=== PATIENT | male | born 1975 | race Caucasian/White ===

== ENCOUNTER 2022-11-28 16:30 | Emergency (ER) | payer BC, SELFPAY ==
[2022-11-28 16:33] VITALS: BP 145/103; PULSE 96; RESP 16; TEMP 36; O2SAT 98; BMI 33.5
--- NOTE | 2022-11-28 16:45 | CRLHL7_ITS ---
For Patients: As a result of the Century Cures Act, medical imaging exams and procedure reports are released immediately into your electronic medical record. You may view this report before your referring provider. If you have questions, please contact your health care provider. Indication: RIGHT FRONTAL HEADACHE, R/O SINUSITIS Technique: CT of the head without contrast. Coronal and sagittal reformats. Bone and soft tissue windows. Comparison: No prior studies available for comparison at this institution. Findings: No acute intracranial hemorrhage or extraaxial collection. No evidence of acute cortical infarction. No mass effect or midline shift. Normal cerebral volume. The ventricles are normal in size, shape and contour. There is normal mario and white matter differentiation. The orbital contents are normal. No calvarial fractures. No lytic or sclerotic osseous lesions within the calvarium or skull base. Scalp and other imaged soft tissue structures are normal. The mastoid air cells are clear. Complete opacification of the frontal sinuses, left ethmoid air cells, moderate opacification of right ethmoid air cells. Moderate opacification of the right sphenoid sinus. Moderate right and mild left maxillary sinus mucosal thickening with air-fluid levels, right greater than left. Bilateral nasal polyps. Leftward deviation of the nasal septum. The mastoid air cells and middle ear cavities are clear. Impression: 1. No acute intracranial abnormality. 2. Complete opacification of the frontal sinuses, left ethmoid air cells, moderate opacification of right ethmoid air cells. Moderate opacification of the right sphenoid sinus. Moderate right and mild left maxillary sinus mucosal thickening with air-fluid levels, right greater than left. Bilateral nasal polyps. Findings suggestive of acute on chronic sinus disease. Please note that all CT scans at this facility use dose modulation, iterative reconstruction, and/or weight-based dosing when appropriate to reduce radiation dose to as low as reasonably achievable. Dictated by Kuldip Ortez MD @ 11/28/2022 5:10:24 PM (Electronically Signed)
--- NOTE | 2022-11-28 16:46 | ED_ITS ---
HPI - General Adult General Time Seen by Provider: 16:46 Date Seen: 11/28/22 Chief complaint: Headache/Migraine Stated complaint: pain above LT eye Time Seen by Provider: 11/28/22 16:31 Source: patient Mode of arrival: ambulatory Limitations: no limitations History of Present Illness HPI narrative: Patient is a 47-year-old male who has had history of sinusitis, nasal polyps. The patient reports he has had some left eye frontal pain over the last couple of days on and off it was not so bad this morning but he went to work, it got worse. He states ?I feel like his a tension headache?. He has not had migraines not had any nuchal rigidity no thunderclap nature of the headache. No fevers chills no COVID symptoms. He has been told he has got a borderline blood sugar with minimally elevated hemoglobin A1c, as recent nonfasting blood sugar was 119 Related Data Previous Rx's Medication Instructions Recorded amoxicillin 875 mg-potassium 1 tab PO BID #14 tabs 11/28/22 clavulanate 125 mg tablet hydrocodone 5 mg-acetaminophen 325 1 tab PO Q6H PRN pain #14 tabs 11/28/22 mg tablet prednisone 20 mg tablet 20 mg PO BID 5 days #10 tabs 11/28/22 Allergies Allergy/AdvReac Type Severity Reaction Status Date / Time No Known Drug Allergies Allergy Verified 11/28/22 16:36 Review of Systems Status of ROS: Reports: 6 or more systems reviewed and unremarkable except as noted in History and below PFSH PFSH Social History Smoking Status: Never smoker Do you use any of these nicotine containing products: None Second hand tobacco smoke exposure: No How often do you have a drink containing alcohol: never How often do you have six or more drinks on one occasion: Never AUDIT-C Alcohol total score: 0 Non-prescribed substance use: denies use service: No Exam Narrative: Exam Narrative: Objective: Vital signs are unremarkable other than slightly elevated diastolic pressure HEENT shows no facial asymmetry pupils react to light extra muscles intact no facial rashes noted Mouth clear Neck is supple Neurologic upper extremities unremarkable Const: Vital Signs, click to edit/add: Vital Signs - 24 hr 11/28/22 16:33 Temperature 96.8 F L Pulse Rate [Pulse Oximeter] 96 Respiratory Rate 16 Blood Pressure [Ri ght Upper Arm] 145/103 H Pulse Oximetry 98 Oxygen Delivery Me thod Room Air Course Vital Signs Vital signs: Initial Vital Signs Temperature 96.8 F L 11/28/22 16:33 Temperature Source Temporal Artery Scan 11/28/22 16:33 Pulse Rate 96 11/28/22 16:33 Pulse Rhythm Regular 11/28/22 16:33 Pulse Strength 3+ Normal 11/28/22 16:33 Respiratory Rate 16 11/28/22 16:33 Blood Pressure 145/103 H 11/28/22 16:33 Blood Pressure Mean 117 11/28/22 16:33 Blood Pressure Position Sitting 11/28/22 16:33 Pulse Oximetry 98 11/28/22 16:33 Oxygen Delivery Method Room Air 11/28/22 16:33 Vital Signs Temperature 96.8 F L 11/28/22 16:33 Pulse Rate 96 11/28/22 16:33 Respiratory Rate 16 11/28/22 16:33 Blood Pressure 145/103 H 11/28/22 16:33 Pulse Oximetry 98 11/28/22 16:33 Oxygen Delivery Method Room Air 11/28/22 16:33 Temperature 96.8 F L 11/28/22 16:33 Pulse Rate 96 11/28/22 16:33 Respiratory Rate 16 11/28/22 16:33 Blood Pressure 145/103 H 11/28/22 16:33 Pulse Oximetry 98 11/28/22 16:33 Oxygen Delivery Method Room Air 11/28/22 16:33 Medical Decision Making MDM Narrative Medical decision making narrative: Patient is a 47 year white male with history of sinusitis and nasal polyps with left ethmoid sinus area pain medial aspect of his forehead and behind his nose area. He has no history of migraines, no history nuchal rigidity the patient h as no thunderclap nature to his headache. However he has not really had this type of headache in the past. I think it be reasonable to start an IV given 1 L normal saline Toradol/Benadryl/Reglan. Would also get a head CT scan without contrast to make sure his sinuses look reassuring as well as no brain issues. He was comfortable this plan and agreed to proceed as above. Discharge Plan Discharge Clinical Impression: Headache, Sinusitis Patient Disposition: Home w/ Parent or Adult Condition: Improved Additional Instructions: Rest, fluids, light activity for a couple of days, follow-up with primary care in 2-3 days. Tylenol and or Advil or Aleve as needed, Augmentin 875 b.i.d. times 14 days, prednisone 20 mg b.i.d. x5 days, [place] 01/3251 every 8 hours as needed for pain. Off work for 2 days, recheck with primary care in 2 days Activity Level: Light activity Discharge Diet: Regular Prescriptions: New amoxicillin-pot clavulanate 875-125 mg tablet 1 tab PO BID Qty: 14 0RF prednisone 20 mg tablet 20 mg PO BID 5 Days Qty: 10 0RF hydrocodone-acetaminophen 5-325 mg tablet 1 tab PO Q6H PRN (Reason: pain) Qty: 14 0RF Follow Up/Referrals: Robert Hernandez MD [Primary Care Provider] - Stand Alone Forms: [employer] Info Instructions
[2022-11-28] MEDS: diphenhydrAMINE 50 MG/ML inj 25 MG IVP (17:06)
[2022-11-28] MEDS: 0.9 % SODIUM CHLORIDE 1000 ml 1,000 ML 6000 ML IV (17:07)
[2022-11-28] MEDS: KETOROLAC 30 MG/ML inj IVP (17:07)
[2022-11-28] MEDS: METOCLOPRAMIDE HCL 10 MG in 0.9 % SODIUM CHLORIDE 100 ml 100 ML 306 MG IV (17:25)
[2022-11-28] MEDS: AMPICILLIN/SULBACTAM 3 GM in 0.9 % SODIUM CHLORIDE Mini-bag 100 ML IVPB (17:56)
[2022-11-28] MEDS: METHYLPREDNISOLONE SOD SUCC 62.5 MG/ML (125) 125 MG IVP (17:56)
== END 2022-11-28 18:26 | disposition home or self-care (01) ==
PROVIDERS: Emergency Provider Family Medicine; PCP Surgery
DX: R51.9 Headache, unspecified (principal); J32.9 Chronic sinusitis, unspecified
CPT/HCPCS: 70450; 96374; 96375; 99284; J0295; J1200; J1885; J2765; J2930; J7030

== ENCOUNTER 2023-07-16 04:58 | Outpatient (CLI) | payer BC, SELFPAY | END 2023-07-16 04:59 | disposition home or self-care (01) | LOC: AMB 07-18 06:26 | PROVIDERS: PCP Surgery; Visit Provider Family Medicine | DX: R41.82 Altered mental status, unspecified (principal) | CPT/HCPCS: A0425; A0427 ==

== ENCOUNTER 2023-07-16 05:16 | Observation (INO) | payer BC, SELFPAY ==
[2023-07-16] VITALS (13 sets, daily range): BP systolic 111–155; BP diastolic 73–88; PULSE 80–122; RESP 16–20; TEMP 36.7–37.4; O2SAT 95–98; BMI 32.5; BMI 29.8
--- NOTE | 2023-07-16 05:27 | CRLHL7_ITS ---
For Patients: As a result of the Century Cures Act, medical imaging exams and procedure reports are released immediately into your electronic medical record. You may view this report before your referring provider. If you have questions, please contact your health care provider. INDICATION: Acute stroke, slurred speech, left facial droop. TECHNIQUE: CTA head with contrast bolus tracking, 3D angiographic rendering using maximum intensity projection (MIP) and images permanently archived. FINDINGS: There is normal opacification of the intracranial vasculature. There is no large vessel occlusion. No aneurysm is identified. IMPRESSION: Unremarkable head CTA. No large vessel occlusion. Please note that all CT scans at this facility use dose modulation, iterative reconstruction, and/or weight-based dosing when appropriate to reduce radiation dose to as low as reasonably achievable. Dictated by Dimas Lilly MD @ 07/16/2023 8:41:50 AM (Electronically Signed)
--- NOTE | 2023-07-16 05:27 | CRLHL7_ITS ---
For Patients: As a result of the Century Cures Act, medical imaging exams and procedure reports are released immediately into your electronic medical record. You may view this report before your referring provider. If you have questions, please contact your health care provider. INDICATION: Slurred speech and left facial droop. TECHNIQUE: CT head without contrast. COMPARISON: None. FINDINGS: CSF spaces: Within normal limits for age. Brain parenchyma and extra-axial spaces: The mario-white differentiation is normal. No sign of mass, hemorrhage, or midline shift. No extra-axial fluid collection. Skull base and calvarium: The visualized paranasal sinuses and mastoid air cells demonstrate no acute or significant findings. The visualized orbits are grossly unremarkable. No skull fractures. IMPRESSION: No acute infarct, intracranial hemorrhage or other significant incidental findings. Please note that all CT scans at this facility use dose modulation, iterative reconstruction, and/or weight-based dosing when appropriate to reduce radiation dose to as low as reasonably achievable. Dictated by Vic Barbosa MD @ 07/16/2023 5:54:54 AM (Electronically Signed)
--- NOTE | 2023-07-16 05:27 | CRLHL7_ITS ---
For Patients: As a result of the Century Cures Act, medical imaging exams and procedure reports are released immediately into your electronic medical record. You may view this report before your referring provider. If you have questions, please contact your health care provider. INDICATION: Acute stroke, slurred speech, left facial droop. TECHNIQUE: CTA neck with contrast bolus tracking, 3D angiographic rendering using maximum intensity projection (MIP) and images permanently archived. FINDINGS: There is marked tortuosity and redundancy of the internal carotid arteries. There is no significant carotid artery stenosis or dissection. There is no significant vertebral artery stenosis or dissection. The soft tissues of the neck are within normal limits. The cervical spine is in normal alignment. IMPRESSION: No significant carotid or vertebral artery stenosis or dissection. Please note that all CT scans at this facility use dose modulation, iterative reconstruction, and/or weight-based dosing when appropriate to reduce radiation dose to as low as reasonably achievable. Dictated by Dimas Lilly MD @ 07/16/2023 8:45:54 AM (Electronically Signed)
[2023-07-16] MEDS: ASPIRIN 81 MG TAB.CHEW 324 MG PO (05:36)
--- NOTE | 2023-07-16 05:48 | ED.GENADULT ---
HPI - General Adult General Chief complaint: Neuro Symptoms/Altered Deficit Stated complaint: possible stroke Time Seen by Provider: 07/16/23 05:27 Source: patient Mode of arrival: EMS History of Present Illness HPI narrative: I see patient in the hallway as he comes in by EMS unplanned route directly to CT scan for neurological changes. Patient last known well at 9:00 p.m., confirmed by significant other. He gets up for work around 410. He does not typically wake his spouse until he leaves for work at around 445. At around 4:30 a.m., she reports that he woke her up stating that his eye hurt and she could tell that he had a left-sided facial droop and seemed unsteady, therefore she called 911. He has no prior history of neurological changes. No prior history of stroke, AFib or arrhythmia. He is not anticoagulated. No recent trauma or injury. Patient currently reporting headache in the left occipital area. He does report that he had a headache that was dull and mild yesterday in the left eye/left pentecostalism area. No recent fevers. No neck pain. No recent chiropractic manipulation or neck trauma. EMS noting some weakness in the left arm, facial droop and some word slurring on route. No interventions were given prior to hospital arrival. Patient otherwise notes no pain besides the mild headache, no other pertinent history. No prior surgeries. Past medical history notable for type 2 diabetes, hyperlipidemia. Home meds atorvastatin, fenofibrate, metformin. Nonsmoker. ROS notable for the neurological changes as above, otherwise denies times 12 systems. Related Data Home Medications Medication Instructions Recorded Confirmed atorvastatin 20 mg tablet 20 mg PO DAILY 07/16/23 07/16/23 fenofibrate 160 mg tablet 160 mg PO DAILY 07/16/23 07/16/23 metformin 500 mg tablet,extended 500 mg PO DAILY 07/16/23 07/16/23 release 24 hr Previous Rx's Medication Instructions Recorded amoxicillin 875 mg-potassium 1 tab PO BID #14 tabs 11/28/22 clavulanate 125 mg tablet hydrocodone 5 mg-acetaminophen 325 1 tab PO Q6H PRN pain #14 tabs 11/28/22 mg tablet prednisone 20 mg tablet 20 mg PO BID 5 days #10 tabs 11/28/22 Allergies Allergy/AdvReac Type Severity Reaction Status Date / Time No Known Drug Allergies Allergy Verified 07/16/23 06:01 [facility] Social History Smoking Status: Never smoker Do you use any of these nicotine containing products: None Second hand tobacco smoke exposure: No How often do you have a drink containing alcohol: never How often do you have six or more drinks on one occasion: Never AUDIT-C Alcohol total score: 0 Non-prescribed substance use: denies use service: No Exam Const: Vital Signs, click to edit/add: Vital Signs - 24 hr 07/16/23 05:45 07/16/23 05:53 07/16/23 06:00 Temperature 98.1 F Pulse Rate 107 H 108 H Pulse Rate [Pulse Oximeter] 122 H Respiratory Rate 18 Blood Pressure Blood Pressure [Le ft Upper Arm] 155/86 H Pulse Oximetry 97 97 97 Oxygen Delivery Me thod Room Air 07/16/23 06:02 07/16/23 06:15 07/16/23 06:17 Temperature Pulse Rate 105 H 115 H 101 H Pulse Rate [Pulse Oximeter] Respiratory Rate 16 Blood Pressure 136/83 142/88 H Blood Pressure [Le ft Upper Arm] Pulse Oximetry 96 96 96 Oxygen Delivery Me thod 07/16/23 06:18 07/16/23 06:30 07/16/23 06:32 Temperature Pulse Rate 100 90 93 Pulse Rate [Pulse Oximeter] Respiratory Rate Blood Pressure 128/84 Blood Pressure [Le ft Upper Arm] Pulse Oximetry 96 96 95 Oxygen Delivery Me thod 07/16/23 06:45 Temperature Pulse Rate 95 Pulse Rate [Pulse Oximeter] Respiratory Rate Blood Pressure Blood Pressure [Le ft Upper Arm] Pulse Oximetry 96 Oxygen Delivery Me thod Documenting provider has reviewed patient's vital signs: yes Common normals: oriented x3 and alert General appearance: well kempt Other: Awake, alert, not intoxicated. Obvious facial droop, slurring of words, a right-sided gaze preference and guarding of left arm. HENMT: Common normals: normocephalic, head/scalp atraumatic and TM's normal bilaterally Head and scalp: normocephalic and atraumatic Tympanic membrane: TM's normal bilaterally Other: Left facial droop, symmetric palate. Tongue midline. Eye: Common normals: PERRL Pupil: PERRL Other: Seems to have some visual field deficits on the left side my initial exam. Certainly has a right-sided gaze preference. No nystagmus. Pupils equal round and reactive. Neck & C-Spine: Common normals: full ROM and no lymphadenopathy Resp: Common normals: normal respiratory effort, no use of accessory muscles and clear to auscultation bilaterally Effort & inspection: able to speak in complete sentences Auscultation: clear to auscultation bilaterally Cardio: Common normals: regular rate, regular rhythm, S1 normal heart sound, S2 normal heart sound and no murmurs Rate: regular rate Rhythm: regular rhythm Heart sounds: S1 normal and S2 normal GI: Common normals: Normal to inspection, nondistended, normoactive bowel sounds present, soft to palpation, non-tender, no hepatosplenomegaly and no masses Palpation: soft and no hepatosplenomegaly Extremity: Common normals: normal capillary refill and no pedal edema Neuro: [place] Coma Scale: document GCS findings [place] coma scale eye opening: Spontaneous (4) [place] coma scale verbal response: Orientated (5) [place] coma scale motor response: Obey commands (6) [place] coma scale total score: 15 Common normals: oriented x3 Sensorium/orientation: alert Other: Speech slightly slurred, slow speech, seems to have a little difficulty with word finding and speech production. Left-sided visual field deficits, right gaze preference, weakness 3/5 left upper arm, 2/5 left hand. 2/5 weakness left foot, 4/5 weakness left leg proximally. Right side seems normal, 5/5 strength. Psych: Common normals: mental status grossly normal Appearance: well kempt Attitude: engaged Mood and affect: euthymic mood Skin: Common normals: no rashes or lesions noted General skin exam: no rashes or lesions noted Course Course ED Course: Patient med and hallway, signs of obvious stroke. Taken immediately to CT. Noncontrast CT perform. I viewed the images immediately and not detecting any sign of acute bleed recommended we proceed immediately with CT angio. While this is being performed, I walked back to the emergency department and was alerted that neurology was on the phone for me, contacted by our nursing protocol team. I explained clinical findings, last known normal of 2100 and findings. They are recommending no tPA. Re consult Neurology after MRI is performed later today. I will give aspirin, continue remainder of exam, typical cardiac and basic lab workup. Await CT findings. Initial NIH 12 Reevaluation(s) Time of Reevaluation #1: 06:23 Reevaluation #1: Patient family informed of CT findings. NIH is around 12. Some fluctuating strength in the hand and leg on the left side but certainly still deficits. Visual gaze, word-finding, slurring of speech and facial droop seem more consistent. CT angio and initial head CT are normal. Neurology team recommending MRI. Will admit patient for echo, cardiac monitoring, MRI and further workup. Patient will be NPO but will start some maintenance fluid. Labs are reassuring. Admission accepted by night hospitalist. Vital Signs Vital signs: Initial Vital Signs Temperature 98.1 F 07/16/23 05:45 Temperature Source Temporal Artery Scan 07/16/23 05:45 Pulse Rate 122 H 07/16/23 05:45 Respiratory Rate 18 07/16/23 05:45 Blood Pressure 155/86 H 07/16/23 05:45 Blood Pressure Mean 109 H 07/16/23 05:45 Pulse Oximetry 97 07/16/23 05:45 Oxygen Delivery Method Room Air 07/16/23 05:45 Vital Signs Temperature 98.1 F 07/16/23 05:45 Pulse Rate 122 H 07/16/23 05:45 Respiratory Rate 18 07/16/23 05:45 Blood Pressure 155/86 H 07/16/23 05:45 Pulse Oximetry 97 07/16/23 05:45 Oxygen Delivery Method Room Air 07/16/23 05:45 Temperature 98.1 F 07/16/23 05:45 Pulse Rate 95 07/16/23 06:45 Respiratory Rate 16 07/16/23 06:17 Blood Pressure 128/84 07/16/23 06:32 Pulse Oximetry 96 07/16/23 06:45 Oxygen Delivery Method Room Air 07/16/23 05:45 Medications Administered Medications: Discontinued Medications Generic Name Dose Route Start Last Admin Trade Name Freq PRN Reason Stop Dose Admin Aspirin 324 mg 07/16/23 05:35 07/16/23 05:36 Aspirin 81 Mg Tab.Chew PO 07/16/23 05:36 324 mg ONCE ONE Administration Medical Decision Making Lab Data Labs: Lab Results 07/16/23 Range/Units 05:30 WBC 5.97 (4.50-11.00) K/uL RBC 4.30 (4.30-5.90) m/uL Hgb 13.1 L (13.5-17.5) gm/dL Hct 38.9 (37.0-53.0) % MCV 91 (80-100) fL MCH 31 (26-34) pg MCHC 34 (32-36) gm/dL RDW Coeff of David 12.3 (11.5-15.5) % Plt Count 228 (140-440) K/uL Neut % (Auto) 59.4 (42.0-72.0) % Lymph % (Auto) 22.3 (20-44) % [place] % (Auto) 9.4 (0.0-11.0) % Eos % (Auto) 7.9 H (0.0-7.0) % Baso % (Auto) 0.8 (0.0-3.0) % Neut # (Auto) 3.55 (1.7-7.0) K/uL Lymph # (Auto) 1.33 (0.90-2.90) K/uL [place] # (Auto) 0.60 (0.00-0.90) K/UL Eos # (Auto) 0.50 (0.00-0.50) K/uL Baso # (Auto) 0.05 (0.00-0.30) K/uL Abs Immat Gran (auto) 0.01 (0.00-0.30) K/uL Imm/Tot Granulo (auto) 0.2 % INR 1.03 (0.91-1.10) Sodium 139 (135-149) mmol/L Potassium 3.6 (3.6-5.1) mmol/L Chloride 115 H (96-114) mmol/L Carbon Dioxide 17 L (20-32) mmol/L Anion Gap 7 (7-15) mEq/L BUN 17 (5-24) mg/dL Creatinine 0.7 (0.5-1.5) mg/dL Estimated Creat Clear 140.11 Estimated GFR 113 ml/min Glucose 157 H (60-115) mg/dL Calcium 7.4 L (8.4-10.6) mg/dL Imaging Data CT scan - head: Attestation: I have reviewed the pertinent imaging results. My impression: Noncontrast CT with no acute bleed, mass or other pertinent findings Radiologist's impression: IMPRESSION: No acute infarct, intracranial hemorrhage or other significant incidental findings. CT angio head and neck: Attestation: I have reviewed the pertinent imaging results. My impression: I am not qualified to read these. Radiologist's impression: PRELIMINARY FINDINGS/IMPRESSION: CTA head: No large vessel occlusion, significant stenosis or aneurysm. CTA neck: No significant stenosis or occlusion of the cervical carotid or vertebral arteries. Dominant left vertebral artery. THIS IS A PRELIMINARY REPORT. THE FINAL REPORT IS PENDING AND WILL BE ISSUED BY NEURORADIOLOGY. Dictated by Vic Barbosa MD @ 07/16/2023 6:03:42 AM ECG Data Attestation: I personally reviewed and interpreted this ECG as follows: Prior ECG tracings: not available for review Interpretation: Initial EKG with sinus tachycardia, rate of 122. Normal axis, normal intervals. No ischemia normal ST segments. Discharge Plan Discharge Clinical Impression: Cerebrovascular accident Patient Disposition: Admitted As Observation
[2023-07-16 05:50] LABS: Basophils Absolute Auto 0.05 K/uL (0.00-0.30); Basophils Percent Auto 0.8 % (0.0-3.0); Eosinophils Percent Auto 7.9 % (0.0-7.0); Hematocrit 38.9 % (37.0-53.0); Hemoglobin* 13.1 gm/dL (13.5-17.5); Immature Granulocytes Abs Auto 0.01 K/uL (0.00-0.30); Immature Granulocytes Pct Auto 0.2 %; Lymphocytes Absolute Auto 1.33 K/uL (0.90-2.90); Lymphocytes Percent Auto 22.3 % (20-44); Mean Corpuscular HGB Conc 34 gm/dL (32-36); Mean Corpuscular Hemoglobin 31 pg (26-34); Mean Corpuscular Volume 91 fL (80-100); Monocytes Percent Auto 9.4 % (0.0-11.0); Neutrophils Absolute Auto 3.55 K/uL (1.7-7.0); Neutrophils Percent Auto 59.4 % (42.0-72.0); Platelet Count* 228 K/uL (140-440); RDW Coefficient of Variation % 12.3 % (11.5-15.5); White Blood Count* 5.97 K/uL (4.50-11.00)
[2023-07-16 05:54] LABS: Slide Review Reflex No
[2023-07-16 06:06] LABS: Chloride* 115 mmol/L (96-114); Potassium* 3.6 mmol/L (3.6-5.1); Sodium* 139 mmol/L (135-149)
[2023-07-16 06:08] LABS: INR 1.03 (0.91-1.10); Prothrombin Time 14.1 Seconds
[2023-07-16 06:09] LABS: Anion Gap 7 mEq/L (7-15); Blood Urea Nitrogen* 17 mg/dL (5-24); Carbon Dioxide* 17 mmol/L (20-32); Creatinine* 0.7 mg/dL (0.5-1.5); Est. Creatinine Clearance* 140.11; Estimated Glomerular Filt Rate 113 ml/min; Glucose* 157 mg/dL (60-115)
[2023-07-16 06:10] LABS: Calcium* 7.4 mg/dL (8.4-10.6)
--- NOTE | 2023-07-16 07:06 | CRLHL7_ITS ---
For Patients: As a result of the Cures Act, medical imaging exams and procedure reports are released immediately into your electronic medical record. You may view this report before your referring provider. If you have questions, please contact your health care provider. INDICATION: Left facial droop. TECHNIQUE: Multisequence multiplanar MRI of the head without contrast. COMPARISON: Correlated with CT head dated 07/16/2023. FINDINGS: Diffusion-weighted imaging demonstrates no evidence of acute or subacute ischemia. Few scattered foci of nonspecific periventricular and subcortical T2/FLAIR hyperintensity. The ventricles are normal in size. Flow voids of the larger intracranial arteries are patent. Bone marrow signal intensity of the calvarium is within normal limits. Orbits are unremarkable in appearance. Scattered paranasal sinus opacification and diffuse paranasal sinus mucosal thickening with leftward deviation of nasal septum and probable septal spur. IMPRESSION: 1. No evidence of acute ischemia. 2. Few scattered foci periventricular and subcortical T2/FLAIR hyperintensity, nonspecific, but commonly seen in the setting of chronic migraine headache. 3. Scattered paranasal sinus opacification perhaps reflecting sinusitis, with leftward deviation of the nasal septum and probable septal spur. Dictated by Aleks Al MD @ 07/16/2023 9:11:32 AM (Electronically Signed)
[2023-07-16 10:47] LABS: Erythrocyte SedimentationRate* < 2 mm/hr (2-15)
[2023-07-16 11:18] LABS: C Reactive Protein* < 0.5 mg/dL (0.5-1.0)
--- NOTE | 2023-07-16 12:13 | PC.NURSE ---
Discharge: Patient pleasant and cooperative. Patient vitally stable, lungs clear, BS WNL, IV removed, catheter intact. Patient independent in room. Patient with slight left side facial droop and left side weakness. Patient denies pain. Patient urinating and tolerating regular diet. Patient left the floor by foot to home at 1211.
--- NOTE | 2023-07-16 13:45 | PM.DS1 ---
DS: Providers Provider Date Seen: 07/16/23 Date of admission: 07/16/23 07:14 Primary care physician: Robert Hernandez MD Admitting Clinician: Gera Quiñones MD Attending Physician on discharge: Luis Carlos Emmanuel MD Date of Discharge: 07/16/23 DS: Diagnosis Discharge Diagnosis (1) TIA (transient ischemic attack): Status: Acute Problem details: Patient admitted with left-sided facial weakness as well as possible left arm weakness, and difficulty speaking. This resolved fairly quickly. CT, CTA and MRI showed no stroke and no large vessel occlusion. (2) Diabetes mellitus: Status: Acute Problem details: This is been fairly well controlled. Blood sugar on presentation was over 200 showing hypoglycemia not the cause of his neurologic symptoms (3) Dyslipidemia: Status: Acute (4) Temporal headache: Status: Acute Problem details: On admission patient was reporting pain in his left quaker. Palpation of his temporal artery was not tender but anterior to that he did have some tenderness with palpation. His sed rate was undetectable, less than 2, and his CRP was less than 0.5. This is thought not to be temporal arteritis though consulting neurologist said that it is possible to have temporal arteritis with normal inflammatory markers. If he continues to have concerning symptoms consider further evaluation with temporal artery biopsy. DS: Summary Hospital Course Hospital Course: Patient admitted with left-sided facial weakness and possibly left arm weakness and question of speech difficulties. These were all observed at home. In the emergency department exam showed obvious left facial droop, slurring of words, right-sided gaze preference and guarding of left arm. Significant left arm weakness and mild left leg weakness noted at that time as well. CT of the head showed no acute changes and no bleed. CTA showed no large vessel occlusion. MRI of the brain showed mild chronic changes that could be associated with migraine headaches but no acute stroke. His symptoms entirely resolved except minimal left temporal headache and his neurologic exam was normal when I saw him mid morning.. He was seen by Stroke Neurology by tele medicine as well. Status at Discharge Functional status at discharge: independent ambulation Overall status at discharge: patient is back to baseline Time Spent with Patient Time attestation: Total time spent providing and/or coordinating discharge services: 45 minutes Time spent: Greater than 30 minutes Exam Narrative: Exam Narrative: He is alert and in no distress. He is oriented to his circumstances. His speech is fluent. Head is without trauma. Palpation shows minimal tenderness over his left quaker. This is at least a couple cm anterior to the temporal artery. He does have a pulsating and nontender temporal artery. He has no tenderness over the TMJ. Oropharynx is normal. He has no facial asymmetry. Extraocular movements are full. Visual isbell are intact . Pupils are equal round and reactive to light. [id number] is normal bilaterally. Strength testing is full and symmetric bilaterally except for mild spikemaking supervisor strength weakness on the left compared to the right. Finger extension however is equal at 5 over 5 bilaterally. Lower extremity strength is also equal at 5 over 5 bilaterally. Respirations are clear to auscultation. Cardiovascular: S1, S2, regular rate and rhythm. Abdomen is soft without tenderness. Const: Vital Signs, click to edit/add: Vital Signs - 24 hr 07/16/23 05:45 07/16/23 05:53 07/16/23 06:00 Temperature 98.1 F Pulse Rate 107 H 108 H Pulse Rate [Pulse Oximeter] 122 H Respiratory Rate 18 Blood Pressure Blood Pressure [Le ft Arm] Blood Pressure [Le ft Upper Arm] 155/86 H Blood Pressure [Ri ght Arm] Pulse Oximetry 97 97 97 Oxygen Delivery Me thod Room Air 07/16/23 06:02 07/16/23 06:09 07/16/23 06:15 Temperature Pulse Rate 105 H 115 H Pulse Rate [Pulse Oximeter] Respiratory Rate Blood Pressure 136/83 Blood Pressure [Le ft Arm] Blood Pressure [Le ft Upper Arm] Blood Pressure [Ri ght Arm] Pulse Oximetry 96 98 96 Oxygen Delivery Me thod 07/16/23 06:17 07/16/23 06:18 07/16/23 06:30 Temperature Pulse Rate 101 H 100 90 Pulse Rate [Pulse Oximeter] Respiratory Rate 16 Blood Pressure 142/88 H Blood Pressure [Le ft Arm] Blood Pressure [Le ft Upper Arm] Blood Pressure [Ri ght Arm] Pulse Oximetry 96 96 96 Oxygen Delivery Me thod 07/16/23 06:32 07/16/23 06:45 07/16/23 07:16 Temperature 98.4 F Pulse Rate 93 95 Pulse Rate [Pulse Oximeter] 102 H Respiratory Rate 20 Blood Pressure 128/84 Blood Pressure [Le ft Arm] Blood Pressure [Le ft Upper Arm] Blood Pressure [Ri ght Arm] 119/82 Pulse Oximetry 95 96 97 Oxygen Delivery Me thod Room Air 07/16/23 11:41 Temperature 99.3 F Pulse Rate Pulse Rate [Pulse Oximeter] 80 Respiratory Rate 18 Blood Pressure Blood Pressure [Le ft Arm] 111/73 Blood Pressure [Le ft Upper Arm] Blood Pressure [Ri ght Arm] Pulse Oximetry 95 Oxygen Delivery Me thod Room Air Documenting provider has reviewed patient's vital signs: yes DS: Data Data Completed and Pending Labs on day of discharge: Labs from last 24 hours 07/16/23 07/16/23 07/16/23 10:54 05:40 05:30 WBC 5.97 RBC 4.30 Hgb 13.1 L Hct 38.9 MCV 91 MCH 31 MCHC 34 RDW Coeff of David 12.3 Plt Count 228 Neut % (Auto) 59.4 Lymph % (Auto) 22.3 Emmet % (Auto) 9.4 Eos % (Auto) 7.9 H Baso % (Auto) 0.8 Neut # (Auto) 3.55 Lymph # (Auto) 1.33 Emmet # (Auto) 0.60 Eos # (Auto) 0.50 Baso # (Auto) 0.05 Abs Immat Gran (auto) 0.01 Imm/Tot Granulo (auto) 0.2 ESR < 2 L INR 1.03 Sodium 139 Potassium 3.6 Chloride 115 H Carbon Dioxide 17 L Anion Gap 7 BUN 17 Creatinine 0.7 Estimated Creat Clear 140.11 Estimated GFR 113 Glucose 157 H Calcium 7.4 L C-Reactive Protein < 0.5 L Lab Acknowledgement Test Added Imaging MR Brain: My impression: INDICATION: Left facial droop. TECHNIQUE: Multisequence multiplanar MRI of the head without contrast. COMPARISON: Correlated with CT head dated 07/16/2023. FINDINGS: Diffusion-weighted imaging demonstrates no evidence of acute or subacute ischemia. Few scattered foci of nonspecific periventricular and subcortical T2/FLAIR hyperintensity. The ventricles are normal in size. Flow voids of the larger intracranial arteries are patent. Bone marrow signal intensity of the calvarium is within normal limits. Orbits are unremarkable in appearance. Scattered paranasal sinus opacification and diffuse paranasal sinus mucosal thickening with leftward deviation of nasal septum and probable septal spur. IMPRESSION: 1. No evidence of acute ischemia. 2. Few scattered foci periventricular and subcortical T2/FLAIR hyperintensity, nonspecific, but commonly seen in the setting of chronic migraine headache. 3. Scattered paranasal sinus opacification perhaps reflecting sinusitis, with leftward deviation of the nasal septum and probable septal spur. CT scan - head: Radiologist's impression: NDICATION: Slurred speech and left facial droop. TECHNIQUE: CT head without contrast. COMPARISON: None. FINDINGS: CSF spaces: Within normal limits for age. Brain parenchyma and extra-axial spaces: The mario-white differentiation is normal. No sign of mass, hemorrhage, or midline shift. No extra-axial fluid collection. Skull base and calvarium: The visualized paranasal sinuses and mastoid air cells demonstrate no acute or significant findings. The visualized orbits are grossly unremarkable. No skull fractures. IMPRESSION: No acute infarct, intracranial hemorrhage or other significant incidental findings. CT- Other: Radiologist's impression: CTA head: INDICATION: Acute stroke, slurred speech, left facial droop. TECHNIQUE: CTA head with contrast bolus tracking, 3D angiographic rendering using maximum intensity projection (MIP) and images permanently archived. FINDINGS: There is normal opacification of the intracranial vasculature. There is no large vessel occlusion. No aneurysm is identified. IMPRESSION: Unremarkable head CTA. No large vessel occlusion. CTA neck INDICATION: Acute stroke, slurred speech, left facial droop. TECHNIQUE: CTA neck with contrast bolus tracking, 3D angiographic rendering using maximum intensity projection (MIP) and images permanently archived. FINDINGS: There is marked tortuosity and redundancy of the internal carotid arteries. There is no significant carotid artery stenosis or dissection. There is no significant vertebral artery stenosis or dissection. The soft tissues of the neck are within normal limits. The cervical spine is in normal alignment. IMPRESSION: No significant carotid or vertebral artery stenosis or dissection. Discharge Plan Discharge Disposition: Home, Self-Care Date of Admission: 07/16/23 07:14 Attending Provider on Discharge: Victor M Emmanuel Primary Care Provider: Robert Hernandez Condition: Improved Anticipated Discharge Date/Time: 07/16/23 11:39 Discharge Medications: New aspirin 81 mg tablet,delayed release (DR/EC) 81 mg PO DAILY Qty: 100 0RF Continued amoxicillin-pot clavulanate 875-125 mg tablet 1 tab PO BID Qty: 14 0RF atorvastatin 20 mg tablet 20 mg PO DAILY metformin 500 mg tablet extended release 24 hr 500 mg PO DAILY fenofibrate 160 mg tablet 160 mg PO DAILY Discharge Orders: Discharge Order (Routine); Ordered 07/16/23 Ordered By: Victor M Emmanuel Patient Education: Aspirin (By mouth) Additional Instructions: Keep track of your symptoms. If you continue to have pain in your left quaker or left eye you will need further evaluation. If you have another episode of weakness on the left side of your face you should return to the emergency department. Start taking aspirin 81 mg daily. See your doctor next week for recheck of your symptoms. No work for you today or tomorrow. You can return to normal duties if you feel fine in 2 days. Activity Level: Activity as Tolerated Discharge Diet: Regular Follow Up Appointments: Robert Hernandez MD [Primary Care Provider] - 07/26/23 11:45 am ([facility] for follow up.) Forms: Current Media Info Instructions
== END 2023-07-16 12:11 | disposition home or self-care (01) ==
LOC: ED 06:34 → MEDSURG 07:14
PROVIDERS: Family Medicine; Admitting Provider Internal Medicine; Emergency Provider Family Medicine; PCP Surgery; Visit Provider Internal Medicine
DX: G45.9 Transient cerebral ischemic attack, unspecified (principal); R51.9 Headache, unspecified; R53.1 Weakness; R00.0 Tachycardia, unspecified; E11.649 Type 2 diabetes mellitus with hypoglycemia without coma; Z79.84 Long term (current) use of oral hypoglycemic drugs; E78.5 Hyperlipidemia, unspecified; R29.810 Facial weakness; R47.9 Unspecified speech disturbances
CPT/HCPCS: 36415; 70450; 70496; 70498; 70551; 80048; 85025; 85610; 85651; 86140; 93005; 94761; 99284; 99285; 99291; A9270; G0378; Q9967